=== PATIENT | male | born 1985 | race Caucasian/White ===

== ENCOUNTER 2016-04-02 16:47 | Emergency (ER) | payer OTHER ==
--- NOTE | 2016-04-02 17:42 | RAD ---
ELBOW -RIGHT 3-4 VIEWS COMPARISON: None HISTORY: Patient with injury to the right elbow, striking the concrete yesterday. Initial encounter. FINDINGS: Views: Right elbow AP, oblique, lateral. Bones: Normal. Joint spacing: Normal. Soft tissues: Marked soft tissue swelling posterior medial right elbow. IMPRESSION: 1. Marked soft tissue swelling of the posterior medial right elbow. No fracture or joint effusion.
== END 2016-04-02 18:08 | disposition home or self-care (01) ==
LOC: ED 16:47
DX: M70.21 Olecranon bursitis, right elbow (principal); L03.113 Cellulitis of right upper limb; F17.210 Nicotine dependence, cigarettes, uncomplicated; W01.198A Fall on same level from slipping, tripping and stumbling with subsequent striking against other object, initial encounter; Y93.01 Activity, walking, marching and hiking; Y92.9 Unspecified place or not applicable